=== PATIENT | female | born 1950 | race Caucasian/White ===

== ENCOUNTER 2016-09-20 20:31 | Emergency (ER) | payer OTHER ==
[2016-09-20 20:47] VITALS: BP 158/76
== END 2016-09-20 22:11 | disposition home or self-care (01) ==
LOC: ED 20:31
DX: S60.211A Contusion of right wrist, initial encounter (principal); S90.121A Contusion of right lesser toe(s) without damage to nail, initial encounter; W01.0XXA Fall on same level from slipping, tripping and stumbling without subsequent striking against object, initial encounter; Y93.89 Activity, other specified; Y92.89 Other specified places as the place of occurrence of the external cause; Y99.8 Other external cause status

== ENCOUNTER 2018-04-12 14:20 | Emergency (ER) | payer OTHER ==
[~2018-04-12] VITALS: Ht 162.6 cm; Wt 72.6 kg
[2018-04-12 14:33] VITALS: Ht 162.6 cm; Wt 72.6 kg
[2018-04-12 15:46] VITALS: BP 137/69
== END 2018-04-12 15:46 | disposition home or self-care (01) ==
LOC: ED 14:20
DX: S52.572A Other intraarticular fracture of lower end of left radius, initial encounter for closed fracture (principal); S52.612A Displaced fracture of left ulna styloid process, initial encounter for closed fracture; M79.89 Other specified soft tissue disorders; E03.9 Hypothyroidism, unspecified; I10 Essential (primary) hypertension; W18.31XA Fall on same level due to stepping on an object, initial encounter; Y93.89 Activity, other specified; Y92.89 Other specified places as the place of occurrence of the external cause; Y99.8 Other external cause status
CPT/HCPCS: Q0162